=== PATIENT | male | born 1965 | race Two or more races ===

== ENCOUNTER 2017-09-02 15:08 | Emergency (ER) | payer OTHER ==
[2017-09-02] MEDS ORDERED: DIAZEPAM 5 MG TAB PO ONE (15:41)
[2017-09-02] MEDS ORDERED: LIDOCAINE 4%/MENTHOL 1% PATCH TD ONE (15:41)
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
[2017-09-02 16:03] VITALS: BP 137/94
[2017-09-02] MEDS ORDERED: PATCH REMOVAL 1 EA PATCH TD SCH (21:00)
== END 2017-09-02 16:05 | disposition home or self-care (01) ==
DX: S39.012A Strain of muscle, fascia and tendon of lower back, initial encounter (principal); V23.4XXA Motorcycle driver injured in collision with car, pick-up truck or van in traffic accident, initial encounter; Y92.410 Unspecified street and highway as the place of occurrence of the external cause; Y99.8 Other external cause status; Y93.89 Activity, other specified